=== PATIENT | male | born 1965 | race Caucasian/White ===

== ENCOUNTER 2017-12-02 09:49 | Emergency (ER) | payer OTHER ==
[2017-12-02 09:56] VITALS: RESP 16; O2SAT 94
--- NOTE | 2017-12-02 10:02 | EDPHY ---
H & P Stated Complaint: Persistant headache for 2 days. Time Seen by Provider: 12/02/17 10:02 HPI/ROS: CHIEF COMPLAINT: Atraumatic headache HISTORY OF PRESENT ILLNESS: The patient presents to the ED with a 2 day history of an atraumatic headache. 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 He reportedly was treated without surgery. The patient denies any history of fall or trauma. He denies fever, cough or congestion. The patient denies neck stiffness. The patient denies any additional acute complaints. He is without focal neurologic symptoms. The patient does have a history of HIV and has been compliant with his antiviral medications. REVIEW OF SYSTEMS: A comprehensive 10 point review of systems is otherwise negative aside from elements mentioned in the history of present illness. Source: Patient - Personal History Current Tetanus Diphtheria and Acellular Pertussis (TDAP): Yes - Medical/Surgical History Hx Asthma: No Hx Chronic Respiratory Disease: No Hx Diabetes: No Hx Cardiac Disease: No Hx Renal Disease: No Hx Cirrhosis: No Hx Alcoholism: No Hx HIV/AIDS: Yes Hx Splenectomy or Spleen Trauma: No Other PMH: Brain Hemmorage, Hyperlipidemia, HIV+ - Social History Smoking Status: Never smoked - Physical Exam Exam: General Appearance: Alert, no distress Eyes: Pupils equal and round no pallor or injection ENT, Mouth: Mucous membranes moist Respiratory: There are no retractions, lungs are clear to auscultation Cardiovascular: Regular rate and rhythm Gastrointestinal: Abdomen is soft and nontender, no masses, bowel sounds normal Neurological: A&O, normal motor function, normal sensory exam, normal cranial nerves Skin: Warm and dry, no rashes Musculoskeletal: Neck is supple nontender, no meningeal symptoms Extremities: symmetrical, full range of motion Constitutional: Initial Vital Signs Temperature (C) 36.6 C 12/02/17 09:54 Heart Rate 66 12/02/17 09:54 Respiratory Rate 16 12/02/17 09:54 Blood Pressure 140/86 H 12/02/17 09:54 O2 Sat (%) 94 12/02/17 09:54 O2 Delivery Mode Room Air Allergies/Adverse Reactions: No Known Allergies Allergy (Unverified 10/12/16 07:02) Home Medications: Medication Instructions Recorded Efavirenz/Emtricitab/Tenofovir 1 each PO DAILY 12/04/15 [Atripla Tablet] Rosuvastatin Calcium [Crestor 10mg 10 mg PO DAILY 09/20/15 (RX)] Sustiva 10/12/16 Medical Decision Making - Diagnostics Imaging Results: Imaging Impressions Head CT 12/02/17 10:13 Impression: Negative. No acute intracranial hemorrhage or swelling. Findings discussed with Emergency Department physician, Erasmo Lugo on 12/02, 11:57. Head CTA 12/02/17 10:13 Impression: 1. Normal intracranial arterial circulation. No intracranial aneurysm or vascular malformation. 2. Patent venous system. Findings discussed with Emergency Department physician, Dr. Erasmo Lugo on December 02, 2017 at 1157 hours. Neck CTA 12/02/17 10:13 Impression: 1. Widely patent carotid and vertebral arteries. No plaque, stenosis, dissection , or occlusion. 2. [id number]-[id number] degenerative disk disease extending from C4-C5 to C6-C7. Measurement of carotid stenosis is based on the residual internal carotid diameter with [place] Symptomatic Carotid Endarterectomy Trial (NASCET) based stenosis levels. Findings discussed with Emergency Department physician, Erasmo Lugo on 12/02, 11:57. ED Course/Re-evaluation: The patient presents the ED with a 2 day history of a atraumatic headache predominantly over his vertex. The patient reports he has a history of subarachnoid hemorrhage however did not have any treatment of an aneurysm. The patient is not anticoagulated. The patient denies any fever, cough or congestion. The patient denies any focal numbness or weakness. The patient's physical exam demonstrates no evidence of meningitis. Given the patient's history of subarachnoid hemorrhage he did undergo a noncontrast head CT scan and CT angiography all of which demonstrated no evidence of an acute finding. The patient did received 30 mg of IV Toradol in the emergency department. I re-evaluated the patient at 12:40 p.m. and he is currently feeling better. At this point time I do not feel that further workup is indicated. The patient will be advised to take Advil as needed for pain. He should return to the ED for any worsening headache, vomiting or other concerns. Differential Diagnosis: Differential diagnosis considered includes tension headache, migraine syndrome, SODA DISPENSER aneurysm, subarachnoid hemorrhage - Data Points Laboratory Results: Laboratory Results 12/02/17 10:22 12/02/17 10:22 12/02/17 12/02/17 10:22 10:22 WBC 6.66 10^3/uL 10^3/uL (3.80-9.50) RBC 5.03 10^6/uL 10^6/uL (4.40-6.38) Hgb 16.2 g/dL g/dL (13.7-17.5) Hct 46.5 % % (40.0-51.0) MCV 92.4 fL fL (81.5-99.8) MCH 32.2 pg pg (27.9-34.1) MCHC 34.8 g/dL g/dL (32.4-36.7) RDW 13.0 % % (11.5-15.2) Plt Count 211 10^3/uL 10^3/uL (150-400) MPV 9.1 fL fL (8.7-11.7) Neut % (Auto) 37.5 % L % (39.3-74.2) Lymph % (Auto) 50.3 % H % (15.0-45.0) Owen % (Auto) 7.8 % % (4.5-13.0) Eos % (Auto) 3.9 % % (0.6-7.6) Baso % (Auto) 0.3 % % (0.3-1.7) Nucleat RBC Rel Count 0.0 % % (0.0-0.2) Absolute Neuts (auto) 2.50 10^3/uL 10^3/uL (1.70-6.50) Absolute Lymphs (auto) 3.35 10^3/uL H 10^3/uL (1.00-3.00) Absolute Monos (auto) 0.52 10^3/uL 10^3/uL (0.30-0.80) Absolute Eos (auto) 0.26 10^3/uL 10^3/uL (0.03-0.40) Absolute Basos (auto) 0.02 10^3/uL 10^3/uL (0.02-0.10) Absolute Nucleated RBC 0.00 10^3/uL 10^3/uL (0-0.01) Immature Gran % 0.2 % % (0.0-1.1) Immature Gran # 0.01 10^3/uL 10^3/uL (0.00-0.10) Sodium 140 mEq/L mEq/L (135-145) Potassium 4.5 mEq/L mEq/L (3.5-5.2) Chloride 105 mEq/L mEq/L (97-110) Carbon Dioxide 21 mEq/l L mEq/l (22-31) Anion Gap 14 mEq/L mEq/L (8-16) BUN 16 mg/dL mg/dL (7-23) Creatinine 0.9 mg/dL mg/dL (0.7-1.3) Estimated GFR > 60 Glucose 97 mg/dL mg/dL (70-100) Calcium 9.2 mg/dL mg/dL (8.5-10.4) Medications Given: Discontinued Medications Ketorolac Tromethamine (Toradol) 30 mg IVP EDNOW ONE Stop: 12/02/17 12:17 Last Admin: 12/02/17 12:18 Dose: 30 mg Departure - Departure Disposition: Home, Routine, Self-Care Clinical Impression: Acute headache Condition: Good Instructions: Acute Headache (ED) Additional Instructions: 1. Take Ibuprofen or Motrin 600 mg by mouth three times a day. 2. Return to the ED for markedly worsening headache, fever, neck stiffness, vomiting or other concerns. 3. Please schedule a follow-up appointment with your primary care provider as needed. 4. Your CT and CT angiogram demonstrate no evidence of an acute abnormality. Referrals: Grace Kahn MD [Primary Care Provider] - As per Instructions
[2017-12-02 10:33] LABS: PLATELET COUNT 211 10^3/uL (150-400)
[2017-12-02] MEDS ORDERED: IOPAMIDOL (ISOVUE 370) 100 ML BTL IV ONE (10:59)
[2017-12-02 12:08] VITALS: BP 128/93; PULSE 61; TEMP 97.5
[2017-12-02] MEDS ORDERED: KETOROLAC 30 MG/1 ML SDV IVP ONE (12:16)
== END 2017-12-02 12:44 | disposition home or self-care (01) ==
DX: R51 Headache (principal); B20 Human immunodeficiency virus [HIV] disease
CPT/HCPCS: 96374; J1885; Q9967

== ENCOUNTER 2018-12-31 10:09 | Inpatient (IN) | payer OTHER ==
--- NOTE | 2018-12-31 10:33 | EDPHY ---
H & P Time Seen by Provider: 12/31/18 10:32 HPI/ROS: Chief complaint. Chest pain HPI. Patient is a 53-year-old male presents with chest pain. Symptoms began about 1 hr ago. He got this morning and went to the gym and had a hard workout which is his normal Wednesday routine. He got home and developed tightness and squeezing centrally. No radiation. No shortness of breath. However walking from the parking lot to the emergency department he had increased pain and shortness of breath with exertion. No previous symptoms. No cough or fever. No unusual leg pain or swelling. No abdominal pain. Patient had been taking cholesterol medication until 3 or 4 months ago but felt he was having side effects so stopped ROS 10 systems were reviewed and negative with the exception of the elements mentioned in the history of present illness Past Medical/Surgical History: HIV positive, remote history brain hemorrhage, dyslipidemia No family history of early coronary artery disease Social History: Single, nonsmoker, no alcohol Smoking Status: Never smoked Physical Exam: General Appearance: Alert well-developed male moderate distress vital signs are stable Eyes: Pupils equal and round no pallor or injection. ENT, Mouth: Mucous membranes are moist. Respiratory: There are no retractions, lungs are clear to auscultation. Cardiovascular: Regular rate and rhythm. Gastrointestinal: Abdomen is soft and nontender, no masses, bowel sounds normal. Neurological: Awake and alert, sensory and motor exams grossly normal. Skin: Warm and dry, no rashes. Musculoskeletal: Neck is supple nontender. Extremities symmetrical, full range of motion. Psychiatric: Patient is oriented X 3, there is no agitation. Constitutional: Initial Vital Signs Temperature (C) 36.5 C 12/31/18 10:15 Heart Rate 76 12/31/18 10:15 Respiratory Rate 16 12/31/18 10:15 Blood Pressure 141/93 H 12/31/18 10:15 O2 Sat (%) 97 12/31/18 10:15 O2 Delivery Mode Room Air Allergies/Adverse Reactions: No Known Allergies Allergy (Unverified 10/12/16 07:02) Home Medications: Medication Instructions Recorded Sustiva 10/12/16 Descovy 200-25 mg Tablet 12/31/18 Medical Decision Making - Diagnostics EKG Interpretation: EKG interpreted by me shows normal sinus rhythm normal interval and axis. QRS is normal there is no significant ST elevation or depression. No arrhythmia. The rate is 67 Repeat EKG shows normal sinus rhythm normal interval. Left axis deviation. Inverted T-waves lead 3 which are new compared to initial EKG Imaging Results: Imaging Impressions Chest X-Ray 12/31/18 10:34 Impression: Clear lungs. Negative portable chest. One-view chest x-ray interpreted by me is normal Procedures: IV normal saline, monitor Aspirin in the ED ED Course/Re-evaluation: Patient's initial troponin is 0.09. He has ongoing chest pain. I consulted discussed the case with Dr. Ferraro for cardiology who will see the patient in the emergency department Repeat troponin 0.07 Patient will go to the catheterization laboratory technician for continuing chest discomfort Differential Diagnosis: I considered acute coronary syndrome. Initial troponin was elevated. There were no acute EKG changes. I considered pneumonia, pneumothorax as well - Data Points Laboratory Results: Laboratory Results 12/31/18 10:26 12/31/18 10:26 12/31/18 12/31/18 12/31/18 11:15 10:30 10:26 WBC RBC Hgb Hct MCV MCH MCHC RDW Plt Count MPV Neut % (Auto) Lymph % (Auto) [place] % (Auto) Eos % (Auto) Baso % (Auto) Nucleat RBC Rel Count Absolute Neuts (auto) Absolute Lymphs (auto) Absolute Monos (auto) Absolute Eos (auto) Absolute Basos (auto) Absolute Nucleated RBC Immature Gran % Immature Gran # D-Dimer 0.47 ug/mLFEU ug/mLFEU (0.00-0.50) Sodium Potassium Chloride Carbon Dioxide Anion Gap BUN Creatinine Estimated GFR Glucose Calcium POC Troponin I 0.07 ng/mL ng/mL 0.09 ng/mL H ng/mL (0.00-0.08) (0.00-0.08) 12/31/18 12/31/18 10:26 10:26 WBC 6.01 10^3/uL 10^3/uL (3.80-9.50) RBC 4.80 10^6/uL 10^6/uL (4.40-6.38) Hgb 15.6 g/dL g/dL (13.7-17.5) Hct 46.5 % % (40.0-51.0) MCV 96.9 fL fL (81.5-99.8) MCH 32.5 pg pg (27.9-34.1) MCHC 33.5 g/dL g/dL (32.4-36.7) RDW 13.2 % % (11.5-15.2) Plt Count 201 10^3/uL 10^3/uL (150-400) MPV 9.5 fL fL (8.7-11.7) Neut % (Auto) 48.1 % % (39.3-74.2) Lymph % (Auto) 36.6 % % (15.0-45.0) [place] % (Auto) 10.8 % % (4.5-13.0) Eos % (Auto) 3.7 % % (0.6-7.6) Baso % (Auto) 0.5 % % (0.3-1.7) Nucleat RBC Rel Count 0.0 % % (0.0-0.2) Absolute Neuts (auto) 2.89 10^3/uL 10^3/uL (1.70-6.50) Absolute Lymphs (auto) 2.20 10^3/uL 10^3/uL (1.00-3.00) Absolute Monos (auto) 0.65 10^3/uL 10^3/uL (0.30-0.80) Absolute Eos (auto) 0.22 10^3/uL 10^3/uL (0.03-0.40) Absolute Basos (auto) 0.03 10^3/uL 10^3/uL (0.02-0.10) Absolute Nucleated RBC 0.00 10^3/uL 10^3/uL (0-0.01) Immature Gran % 0.3 % % (0.0-1.1) Immature Gran # 0.02 10^3/uL 10^3/uL (0.00-0.10) D-Dimer Sodium 139 mEq/L mEq/L (135-145) Potassium 4.0 mEq/L mEq/L (3.5-5.2) Chloride 108 mEq/L mEq/L (97-110) Carbon Dioxide 22 mEq/l mEq/l (22-31) Anion Gap 9 mEq/L mEq/L (6-14) BUN 16 mg/dL mg/dL (7-23) Creatinine 1.0 mg/dL mg/dL (0.7-1.3) Estimated GFR > 60 Glucose 121 mg/dL H mg/dL (70-100) Calcium 9.1 mg/dL mg/dL (8.5-10.4) POC Troponin I Medications Given: Discontinued Medications Aspirin (Aspirin) 324 mg PO EDNOW ONE Stop: 12/31/18 10:44 Last Admin: 12/31/18 10:44 Dose: 324 mg Nitroglycerin (Nitrostat) 0.4 mg SL EDNOW ONE Stop: 12/31/18 11:26 Last Admin: 12/31/18 11:27 Dose: 0.4 mg Point of Care Test Results: Chemistry 12/31/18 12/31/18 11:15 10:30 POC Troponin I 0.07 ng/mL ng/mL 0.09 ng/mL H ng/mL (0.00-0.08) (0.00-0.08) Departure - Departure Disposition: To OP Cath/Surgery Clinical Impression: Acute coronary syndrome Condition: Fair
[2018-12-31 10:40] LABS: PLATELET COUNT 201 10^3/uL (150-400)
[2018-12-31] MEDS ORDERED: ASPIRIN 81 MG CHEWABLE TAB ONE (10:42)
[2018-12-31] MEDS ORDERED: ASPIRIN 81 MG CHEWABLE TAB PO ONE (10:43)
[2018-12-31] MEDS ORDERED: NITROGLYCERIN 0.4 MG BTL SL ONE (11:25)
--- NOTE | 2018-12-31 11:33 | CPEKG ---
Test Reason : OPEN Blood Pressure : / mmHG Vent. Rate : 083 BPM Atrial Rate : 084 BPM P-R Int : 198 ms QRS Dur : 088 ms QT Int : 374 ms P-R-T Axes : 023 002 004 degrees QTc Int : 440 ms Sinus rhythm Confirmed by Mehul Storey ([id number]) on 12/31/2018 11:33:24 AM Referred By: MEHUL STOREY Confirmed By:Mehul Storey
--- NOTE | 2018-12-31 11:34 | CPEKG ---
Test Reason : OPEN Blood Pressure : / mmHG Vent. Rate : 067 BPM Atrial Rate : 066 BPM P-R Int : 189 ms QRS Dur : 088 ms QT Int : 382 ms P-R-T Axes : 018 021 037 degrees QTc Int : 404 ms Sinus rhythm Confirmed by Chaitanya Storey ([id number]) on 12/31/2018 11:33:32 AM Referred By: PHYSICIAN ED Confirmed By:Chaitanya Storey
[2018-12-31] MEDS ORDERED: LIDOCAINE 1% 300 MG/30 ML SDV ONE (11:54)
[2018-12-31] MEDS ORDERED: fentaNYL 100 MCG/2 ML INJ ONE ×3 (11:54→13:14)
[2018-12-31] MEDS ORDERED: MIDAZOLAM 2 MG/2 ML VIAL ONE ×3 (11:54→13:14)
[2018-12-31] MEDS ORDERED: VERAPAMIL 5 MG/2 ML VIAL ONE (11:55)
[2018-12-31] MEDS ORDERED: IOPAMIDOL (ISOVUE-370) 150 ML BTL IV ONE (11:55)
[2018-12-31] MEDS ORDERED: HEPARIN 10,000 UNIT/10 ML MDV (1,000 UNIT/ML) ONE (11:55)
--- NOTE | 2018-12-31 12:33 | GCON ---
[f rep st] CONSULTATION CARDIOLOGY CONSULT REFERRING PHYSICIAN: Chaitanya Storey MD REASON FOR CONSULTATION: Acute chest pain. HISTORY OF PRESENT ILLNESS: I have been asked to urgently visit with this patient in the emergency department by Dr. Chaitanya Storey. He is a very pleasant 53-year-old male with a longstanding history of HIV, on retroviral therapy, and hyperlipidemia, who presented with chest discomfort this morning after his regular exercise regimen. He did not have any chest discomfort while exercising. The chest discomfort started 1 hour after exercise. . It is described as heaviness in the retrosternal area without radiation. No relation with posture or respiration. He received an aspirin in the emergency department. On arrival, his chest discomfort was rated as an 8 on a scale of 1 to 10. Currently, he rates it as a 4. He received a sublingual nitroglycerin while I was present in the room. This did not alter his chest pain. He reports that he has had hyperlipidemia with a total cholesterol in the 300s, was placed on atorvastatin by his ID physician, Dr. Grace Kahn, but decided not to take it after he developed some joint pains. He is willing to resume the medication at this time. PAST MEDICAL HISTORY: 1. HIV. 2. Hyperlipidemia. 3. History of stroke - h/o IC bleed per patient but CTA head and CT head negative for aneurysm/bleed in 2018 FAMILY HISTORY: Not relevant to this exam. 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 Drinks moderately. Denies smoking or illicit drug use. REVIEW OF SYSTEMS: Negative except for mentioned in the HPI. PHYSICAL EXAMINATION: VITAL SIGNS: Blood pressure 122/86, heart rate 68, oxygen saturation is 95% on room air. LUNGS: Clear to auscultation. CVS: S1 and S2. Regular rate and rhythm. No murmurs, gallops, or rubs. ABDOMEN: No tenderness, guarding, or rigidity. HEENT: PERRLA. EOMI. NECK: No JVP. No carotid bruit. EXTREMITIES: No clubbing, cyanosis, or edema. NEUROLOGIC: Alert and oriented x3. No gross motor or sensory deficits. EKGs were reviewed. EKG on arrival at 10:11 showed a normal sinus rhythm without any acute ST or T-wave changes. [place] is leftward. EKG done at 11:03 showed a normal sinus rhythm. There are no acute ST or T-wave changes, but the S-wave in lead III is deeper than the prior EKG. Labs are reviewed. CBC is within normal limits. D-dimer is 0.47. Chem-7 is normal. [id number] troponin was 0.09 on arrival. Upper limit of normal is 0.08. It was repeated, and it was 0.07. Echocardiogram was done. I reviewed it while it was being done. This shows normal LV function with subtle apical hypokinesis. ASSESSMENT AND PLAN: This is a 53-year-old male with a history of human immunodeficiency virus, on retroviral therapy, and hyperlipidemia, which is untreated, who was presenting with an acute episode of chest discomfort after exercise. There are subtle wall motion abnormalities on an echocardiogram. The left ventricular ejection fraction is normal overall. There were no significant valvular lesions. Wcqmv-cz-[id number] troponin was borderline elevated. I discussed several options with the patient. These included managing him medically, checking serial troponins and making a decision regarding further testing tomorrow versus proceeding with a coronary angiography. The patient prefers to move forward with a coronary angiography because of continuing chest discomfort, which he currently rates as a 4 on a scale of 1 to 10. The risks of the coronary angiography including , ID, CVA, cardiac tamponade, renal failure, anaphylaxis, vascular access complications, et cetera , were reviewed with the patient. The patient signed informed consent. I have discussed this case with my partner , Dr. Tayo Gibson, who is going to perform the patient's coronary angiography. /[id number]/MODL MTDD
[2018-12-31] MEDS ORDERED: NITROGLYCERIN 1,500 MCG/15 ML VIAL MISC ONE (13:04)
[2018-12-31] MEDS ORDERED: niCARdipine 25 MG/10 ML VIAL IV ONE (13:07)
[2018-12-31] MEDS ORDERED: EPTIFIBATIDE 200 MG/100 ML BOTTLE IV ONE (13:09)
[2018-12-31] MEDS ORDERED: ETOMIDATE 40 MG/20 ML INJ ONE (13:15)
[2018-12-31] MEDS ORDERED: KETOROLAC 30 MG/1 ML SDV ONE (13:22)
[2018-12-31] MEDS ORDERED: NITROGLYCERIN/D5W 50 MG/250 ML BOTTLE IV ONE (13:33)
[2018-12-31] MEDS ORDERED: MEPERIDINE 25 MG/ML SYR ONE (13:33)
[2018-12-31] MEDS ORDERED: DEXMEDETOMIDINE HCL 400 MCG in NS 100 ML IV SCH (14:00)
--- NOTE | 2018-12-31 14:01 | ECHO ---
[email or web address] [address] [address] Main: [phone] Echocardiography Examination Transthoracic Name: DONALDO GARCIA MR#: [id number] Study Date: 12/31/2018 Study Time: 11:35 AM Date of : 1965 Age: 53 year(s) Height: 172.7 cm (68 in.) Weight: 97.52 kg (215 lb.) BSA: 2.11 m2 Gender: Male Examination: Echo Contrast: Image Quality: Adequate Rhythm: Normal sinus rhythm Heart Rate: 84 bpm BP: 130 mmHg/79 mmHg Indication: Chest Pain Procedure Staff Referring Physician: Ui Developer With Angular Js: Reading Physician: Uche Ferraro MD Requesting Provider: Ordering Physician: Uche Ferraro MD Indication: Chest Pain Measurements Chambers AV/MV Label Value Normal Value Label Value Normal Value EF lower range (%) 55 % AV PGmax 5 mmHg EF upper range (%) 60 % AV PGmean 3 mmHg IVSd, 2D 1 cm (0.6cm - 1.1cm) AV Vmax 1.07 m/s LVDd, 2D 4.6 cm (4.2cm - 5.9cm) CINTHYA (continuity eq. 2 cm2 LVDs, 2D 3.4 cm (2.1cm - 4cm) Vmax) LVEF visual 60 % CINTHYA D (continuity eq. 2.3 cm2 LVEF, 2D 51 % (54% - 74%) VTI) LVOT PGmax 2 mmHg MV A Vmax 0.76 m/s LVOT PGmean 1 mmHg MV E' lateral 0.06 m/s LVOT Vmax 0.69 m/s (0.7m/s - 1.1m/s) MV E' mean 0.06 m/s LVOT Vmean 0.44 m/s MV E' septal 0.05 m/s LVOTd 2 cm (1.9cm - 2.1cm) MV E Vmax 0.45 m/s LVPWd, 2D 1 cm (0.6cm - 1cm) MV E/A 0.59 RVDd, 2D 1.9 cm (1.9cm - 3.8cm) MV E/E' lateral 7.8 LA Volume, A4C 39 ml (16ml - 34ml) MV E/E' mean 8.18 LAESV index, MOD4 18.5 ml/m2 MV E/E' septal 8.5 (0.5 - 1.7) Additional Vessels TV/PV Label Value Normal Value Label Value Normal Value AoRoot, MM 3.5 cm (2.2cm - 3.7cm) NJ End hernandez Quinn 1.43 cm/s Patient: DONALDO GARCIA Study Date: 12/31/2018 Page 1 of 3 11:35 AM PV PGmax 3 mmHg PV Vmax, Caliper 0.8 m/s (0.6m/s - 0.9m/s) Conclusions Left Ventricle: Low normal left ventricular systolic function. There is apical anterior and apical hypokinesis. Right Ventricle: Right ventricular systolic function is normal. Mitral Valve: Trivial mitral regurgitation. Pericardium: This is an emergent echocardiogram performed in the ER pre cath.. Findings Left Ventricle: Left ventricle is normal in size. Low normal left ventricular systolic function. The EF is visually estimated to be 60 %. EF range is estimated at 55 % - 60 %. Left ventricle wall thickness is normal. Left ventricular diastolic function parameters are normal. No LV hypertrophy. There is apical anterior and apical hypokinesis. Right Ventricle: Normal size right ventricle. Right ventricular systolic function is normal. Left Atrium Measurements LAESV index, MOD4 is 18.5 ml/m2. Right Atrium: The right atrium is normal in size. Mitral Valve: Mitral valve appears structurally normal. Trivial mitral regurgitation. No mitral valve stenosis. Aortic Valve: Aortic leaflets are structurally normal. No aortic valve regurgitation. The aortic valve is trileaflet. Tricuspid Valve: Tricuspid valve leaflets are structurally normal. Trivial tricuspid regurgitation. Pulmonic Valve: Pulmonic leaflets are normal in appearance and function. Trivial pulmonic valve regurgitation is present. Aorta: The aorta is normal. The aortic root size in M-mode measures 3.5 cm. Aorta Measurements AoRoot, MM is 3.5 cm. Pericardium: This is an emergent echocardiogram performed in the ER pre cath.. Exam Details Procedure Ordered: Echo Procedure Status: Routine study Image Quality: Adequate Facility Location: Cardiac Echo 1 (No Signature Object) Patient: DONALDO GARCIA Study Date: 12/31/2018 Page 2 of 3 11:35 AM Patient: DONALDO GARCIA Study Date: 12/31/2018 Page 3 of 3 11:35 AM [id number]
[2018-12-31] MEDS ORDERED: LORazepam 2 MG/ML INJ IVP PRN (14:03)
[2018-12-31] MEDS ORDERED: TEMAZEPAM 15 MG CAP PO PRN (14:03)
[2018-12-31] MEDS ORDERED: ATROPINE SULFATE 1 MG/10 ML SYR IVP PRN (14:03)
[2018-12-31] MEDS ORDERED: CLOPIDOGREL BISULFATE 75 MG TAB PO ONE (14:03)
[2018-12-31] MEDS ORDERED: HYDROCODONE/APAP 5/325 TAB PO PRN (14:03)
[2018-12-31] MEDS ORDERED: NITROGLYCERIN 0.4 MG BTL SL PRN (14:03)
[2018-12-31] MEDS ORDERED: CLOPIDOGREL BISULFATE 75 MG TAB ONE (14:06)
[2018-12-31] MEDS ORDERED: EPTIFIBATIDE 100 ML IV SCH (14:30)
[2018-12-31] MEDS: NS 1,000 ML IV SCH (15:17)
--- NOTE | 2018-12-31 15:28 | CPIP ---
[f rep st] INVASIVE CARDIAC PROCEDURE DATE OF PROCEDURE: 12/31/2018 PROCEDURE PERFORMED: 1. Selective coronary angiography. 2. Left heart catheterization. 3. Left ventriculogram. 4. Percutaneous transluminal coronary angioplasty and stent placement of the proximal left anterior descending with the use of a 4.0 x 24 Synergy drug-eluting stent. INDICATIONS/APPROPRIATE USE CRITERIA: The patient has a positive troponin with an evolving EKG sugge stive of a possible high lateral or anterolateral injury pattern with an echocardiogram revealing dis tony apical hypokinesis, which is mild but certainly present. The patient has ongoing pain in spite o f sublingual nitroglycerin in the emergency department. I was asked to see the patient in emergency consultation for a cardiac catheterization by Dr. Uche Ferrrao. PROCEDURE IN DETAIL: After informed consent was obtained by the urgent nature of the situation, and n.p.o. status was confirmed, the region of the left wrist was cleaned, prepped, and draped in sterile fashion. Approximately 3 cc of 1% lidocaine was utilized for local anesthesia. A 6-Uruguayan sheath w as placed to the left radial artery with single anterior puncture of that vessel. The patient did un dergo an Amadou's test which demonstrated normal and dual arterial supply to the index fingers. The p atient underwent the previously mentioned diagnostic procedure with use of JL4 and R4 coronary cathet ers, as well as a 5-[place]ruguayan pigtail catheter. Standard over the wire exchange technique was utilized for all catheter exchanges. A Michel right catheter was also utilized. The right coronary artery is dominant, giving rise to posterior descending as well as the posterolateral and ventricular branch . With a standard JR4 catheter, there was evidence of a conus injection and dampening of the pressur e waveform. Therefore, we switched to a Michel right, which we were able to manipulate past the ta keoff of the conus branch to perform angiography. The vessel was large, approximately 4 mm in size. It gives rise to an important PDA and PLV branch. No flow-limiting obstruction of the blood vessels identified. There was excellent and MARIA-3 flow to the distal vessel. There was no evidence of rig ht to left collateral circulation. A JL4 diagnostic catheter was used to intubate the left main yoni nary. The left main coronary is approximately 8 mm in size and has an ostial obstruction near its ta keoff from the LAD, estimated at a maximum stenosis of approximately 20% at its takeoff from the left main. Left main trifurcates into an LAD, circumflex, and ramus system. The ramus vessel is small, approximately 1 mm in size and free of flow-limiting disease. The circumflex has a 20% ostial stenos is at the takeoff from the left main and gives rise to 2 important obtuse marginal branches, all of w hich are free of significant flow-limiting obstruction. The proximal LAD is approximately 3 to 5 mm in size and there is a 90% obstruction of the blood vessel with angiographic appearance with a fillin g defect consistent with a thrombus and ruptured plaque in the proximal LAD. There is MARIA-2 flow to the distal vessel in the LAD as well as MARIA-2 flow into a high diagonal vessel and MARIA-2 flow into a septal branch which both happened to come off in the LAD just distal to the visible clot within th e blood vessel. The patient then underwent the previously mentioned left heart catheterization with the use of a pigtail catheter. This demonstrated a sub EDP of 12 mmHg. The patient underwent left v entriculogram in the GREER projection, demonstrating relatively well-preserved ejection fraction at 50% to 55%. There was distal anterior wall and apical hypokinesis as were noted on the echocardiogram. No significant mitral regurgitation was noted on pressurized injection of the left ventricle. 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 There was no evidence of dissection or viviana aneurysm of the visualized portion of the thoracic aor ta. We turned our attention to the lesion in the proximal LAD. A 6-Uruguayan JL4 catheter was used for guide catheter support. A 0.014 Intuition wire was advanced across the lesion in question under dir ect fluoroscopic and angiographic guidance. Because of the visible thrombus within the LAD, we decid ed to try to trap the thrombus against the sidewall of the blood vessel with a primary stenting techn ique. This was accomplished with a 4.0 x 24 Synergy drug-eluting stent inflated to a maximum pressur e of 16 atmospheres with excellent angiographic results and 0% residual stenosis status post PTCA and stent placement. We were able to avoid compromising the ramus or origin of the circumflex vessel. Subsequent angiography did demonstrate a no reflow phenomenon. However, there was smooth and laminar flow within this stented segment of the LAD. This was treated with standard precautions including i ntracoronary nitroglycerin and nicardipine in combination with subsequent improvement in the flow to a MARIA-3 flow throughout the LAD. There was also evidence of good flow into the principal and 2nd di agonal vessel. Unfortunately, with stent implantation, both the small high lateral diagonal and the principal septal branch were completely occluded with evidence of MARIA-1 flow into the septal and DARBY I-0 flow into the small high diagonal vessel. These were treated with ongoing intracoronary nitrogly cerin. I did attempt to wire open that major septal. However, I was unable to get the wire past the stent strut and into the septal vessel and was using forces that I was concerned may have resulted i n a tear in the LAD proper. We, therefore, decided to abandon attempts to open the septal branches. The patient had an unusual severity of pain following this problem and we did perform angiography to ensure that there was not a stain in the aorta or proximal portion of the left main vessel. We ultim ately did ask for anesthesia to come and help us manage the patient's pain. He also had a very unusu ally high tolerance for benzodiazepines and fentanyl in the lab and I felt uncomfortable with pressin g those doses to help control his pain. 30 mg of Toradol to help treat any inflammatory component or pericardiac component to the discomfort was also utilized and ultimately the patient was placed on a Precedex drip. His EKG was performed revealing sinus bradycardia with no evidence of an injury or i schemic pattern on the EKG. There was a new first-degree AV block, likely related to the septal bran ch issue and the patient will need to be monitored for progression of AV block given the obstruction of the septal branch. The lateral ST-segment elevation in 1 and aVL as well as V4 and V5 were no sabrina giovana present on the postoperative EKG. The patient will require admission to the ICU for pain management and control as well as for an intra venous nitroglycerin drip to try to help improve the blood flow into these branches. We also gave th e patient a double bolus protocol of Integrilin to add a IIb/IIIa inhibitor to the mix to try to help treat any residual thrombus within that septal or diagonal branch. The patient will be admitted to the ICU in serious but stable condition, where serial troponins and EKGs will be obtained. Unfortuna tely, we will be unable to give beta blockers in high dose secondary to the appearance of first-degre e AV block and the known occlusion of his major septal branch which could affect his conduction syste m. Copy requested to: Primary Care Physician /[id number]/MODL
[2018-12-31] MEDS ORDERED: ENOXAPARIN 60 MG/0.6 ML SYR SC ONE (21:00)
[2018-12-31] MEDS: ONDANSETRON 4 MG/2 ML VIAL IVP PRN (22:25)
[2019-01-01] MEDS ORDERED: NS 300 ML IV ONE (01:00)
[2019-01-01] MEDS: NS 1,000 ML IV SCH (02:48)
[2019-01-01 06:19] LABS: PLATELET COUNT 158 10^3/uL (150-400)
[2019-01-01] MEDS: ASPIRIN 325 MG TAB PO SCH (08:53)
[2019-01-01] MEDS: CLOPIDOGREL BISULFATE 75 MG TAB PO SCH (08:53)
[2019-01-01] MEDS ORDERED: ASPIRIN 325 MG TAB PO SCH (09:00)
--- NOTE | 2019-01-01 11:16 | ASMTCMCOM ---
CM Note CM Note Notes: Reviewed chart. Pt presented to the Emergency Department with acute chest pain. History includes HIV, dyslipidemia, remote hx of brain hemorrhage. Pt admitted for acute coronary syndrome. He is s/p a heart cath. 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 Per ICU rounds, pt may discharge home independently later today, if he is medically stable. Pt to follow up as directed. No IM/COHEN forms to be signed, not applicable. CM available for any further issues or concerns. Discharge Plan: Likely home independent Date Signed: 01/01/2019 11:15 AM Electronically Signed By:Ana Contreras RN
[2019-01-01] MEDS: OXYCODONE/APAP 5/325 TAB PO PRN ×2 (16:53→20:54)
--- NOTE | 2019-01-01 18:00 | GPROG ---
[f rep st] PROGRESS NOTE TRANSFER OF CARE SUMMARY HISTORY OF PRESENT ILLNESS: Clifton is a 53-year-old very pleasant HIV-positive man, who went for a workout yesterday, which was relatively strenuous. He has been working out for the past several alona hs and has managed to lose approximately 30 pounds by an aggressive workout regimen. He had no sympt oms during the work out, but after the workout, experienced chest pressure and tightness that continu ed and climbed to a level of 4/10 in severity. It is located in his central chest and associated wit h mild nausea and shortness of breath. He came to the emergency department for an initial evaluation , and his EKG initially was normal; however, repeat electrocardiogram revealed minor, but important c hanges in leads I and aVL, suggestive of a high lateral or diagonal vessel injury. A STAT echocardio gram was performed in the emergency department, noting distal anterior wall and apical hypokinesis co nsistent with probable ischemia. The troponin I was also marginally elevated at 0.09 on initial eval uation, and then 0.07, which of course is near the upper limit of normal. Given the EKG and echocard iographic changes, it was deemed important to take the patient to the catheterization laboratory for a definitive evaluation of his coronary anatomy. HOSPITAL COURSE: The patient was admitted to the cardiac catheterization laboratory and underwent [facility] cardiac catheterization and angiography, documenting a severe if not critical stenosis of the proximal LAD with associated filling defects and staining consistent with a thrombus in the proximal LAD with associated MARIA 1 flow into a very tiny high diagonal branch, which came off the LAD in the region of the clotted segment. The second and principal diagonal were widely patent, and there was T IMI 2 flow to the distal LAD on initial presentation. We decided to perform primary stenting, as the rest of the vessel appeared to be relatively pristine, for concerns of embolizing the visible clot b urden more distally into the vessel. The vessel was primarily stented with a 4.0 x 24 Synergy drug-e luting stent, and almost immediately post-stent implantation, the patient complained of chest discomf ort. There was noted no reflow within the distal LAD, which was treated appropriately with intra-art erial nitroglycerin and nicardipine with subsequent resolution of this issue. There was also complet e occlusion of the very tiny high lateral diagonal branch that I mentioned previously, and there was also obstruction of a proximal septal vessel. There was MARIA 1 flow with just staining of the septal branch post-stent implantation. Unfortunately, patient's level of pain climbed significantly to a level of 8-10 in severity with asso ciated diaphoresis. Angiography was performed in multiple projections, which did not demonstrate tanisha dence of a plaque rupture or of an edge dissection of the LAD stent, which was my primary concern. T here was also no evidence of a dissection of the left main or aorta interface, and the left main was noted to be widely patent. There was excellent MARIA grade 3 flow throughout the LAD. Ultimately, th e patient had received high levels of benzodiazepines and fentanyl including 350 mcg of fentanyl with out significant pain relief. He also received etomidate, which he seemed to be somewhat resistant to , even a doses of 0.1 mcg/kg given separately. Anesthesia was consulted for help with pain relief, a nd given his response to those medications, we felt it would be most prudent to begin a Precedex drip . The Precedex drip was initiated, and we gave the patient intravenous nitroglycerin with subsequent resolution within 30-40 minutes or so of the chest pain syndrome. The patient did well until the rly evening hours last night, and then experienced some chest discomfort, which was treated with hydr ocodone. 30 minutes after the patient received hydrocodone, his pain became severe again last night with an 8/10 episode with hypotension and associated diaphoresis. The intravenous nitroglycerin was discontinued. The patient received morphine at that time. Unfortunately, a 12-lead EKG was not perf ormed during the episode of discomfort. 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 At the ti me of my evaluation this morning and this afternoon, his discomfort seems to be well controlled. His troponin margret to 2.4 and then 3.6 this morning, and will be checked again to ensure that we have see n the peak of his troponin elevation. In turn, a proBNP was elevated at 245 and was obtained as a pr ognostic marker. Because of the patient's pain, I do not think he is a current candidate for discharge. His EKG this morning shows sinus bradycardia with a new first-degree AV block that is likely related to septal bra nch occlusion and septal branch retirement. During the procedure, I did try to rewire this high diagonal a nd the septal branch and was unsuccessful given the clot burden that had been compressing those vesse ls and the fact that the stent seemed to cross over the ostium of the septal and unfortunately the hi gh lateral branch. So, those vessels have remained occluded in the case of the high lateral diagonal branch and subtotally occluded in regard to the septal obstruction. I do think it would be prudent to keep him overnight to watch for higher grade AV block. I have orde red an EKG in the morning. I would like to obtain an echocardiogram as well as a limited study to en sure that he does not have major or new wall motion abnormalities. Certainly, if there are new wall motion abnormalities in a large distribution of his cardiac muscle, then he may benefit from repeat c atheterization. My sense is that this is likely related to stretch of the vessel wall from a relativ chacho large stent associated with side-branch occlusion as I previously described. PHYSICAL EXAMINATION: Today, the patient's blood pressure is 114/79, the pulse is 63 and regular, re spirations 16, unlabored. NECK: No JVD. HEART: Normal S1 and S2, and he specifically does not hav e a new murmur suggestive of ventricular septal defect. LUNGS: Clear to auscultation bilaterally. ABDOMEN: Benign with positive bowel sounds. It is nondistended and nontender. The sheath was sewn in place and will be removed later today with a TR Band arteriotomy repair. LABORATORY STUDIES: As previously mentioned, with a BUN and creatinine of 13 and 0.7. Glucose of 11 6 this morning with a calcium level of 7.5. The other labs have already been discussed in the body o f this report. IMPRESSION AND PLAN: Subendocardial myocardial infarction related to plaque rupture and thrombus for mation within the proximal left anterior descending compromising flow to a small, if not tiny, high l ateral diagonal branch with subsequent MARIA 0 flow to that tiny branch post-stent implantation, and T IMI 1 flow into the first septal with associated electrical disturbance of first-degree atrioventricu lar block as the only noted complication post-stent implantation. The patient's troponin levels would currently suggest that there is minimal myocardial injury on the basis of his current lab studies. We will obtain an echocardiogram and trend his troponin as well as his EKG overnight, and he will be kept in the hospital for pain control and to watch for evidence of higher grade atrioventricular block given the compromise to the septal circulation. I am going off service in the morning, at 8 o'clock, and my partners will be available to take over t he patient's care. I am on-call overnight and will be available for any questions or concerns that a rise over the next 16 hours. The patient is currently in good, but guarded condition given the issue s that I have already noted. /[id number]/MODL
--- NOTE | 2019-01-01 18:48 | PDMN ---
Medical Necessity Medical necessity: MCG M230 [place] 53 yo M presents with chest pressure and tightness, stat echo revealed prob. 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 pt with subendocardial NJ relatd to plaque rupture and thrombus formation with the proximal LAD compromising flow status changed to INPT 01/01/ for ongoing care of pt with NJ/ cardiac cath with ongoing monitoring needed
[2019-01-01] MEDS: Emtricitabine/Tenofov Alafenam [Descovy 200-25 Mg Tablet] 1 TAB PO SCH (20:53)
[2019-01-01] MEDS: EFAVIRENZ 600 MG TAB PO SCH (20:54)
[2019-01-01] MEDS ORDERED: EFAVIRENZ 600 MG TAB PO SCH (21:00)
--- NOTE | 2019-01-01 23:24 | CPEKG ---
Test Reason : OPEN Blood Pressure : / mmHG Vent. Rate : 048 BPM Atrial Rate : 047 BPM P-R Int : 201 ms QRS Dur : 094 ms QT Int : 443 ms P-R-T Axes : 035 039 010 degrees QTc Int : 396 ms Sinus bradycardia Borderline first degree AV block Confirmed by Tayo Gibson ([id number]) on 01/01/2019 11:23:45 PM Referred By: Uche Ferraro Confirmed By:Tayo Gibson
[2019-01-02] MEDS: ONDANSETRON 4 MG/2 ML VIAL IVP PRN (04:24)
--- NOTE | 2019-01-02 08:47 | PDCARPN ---
Cardiology Progress Note Chief Complaint: CP Assessment/Plan: Assessment: NSTEMI/PCI to LAD with no reflow Plan: 01/02/19 08:45 doing well no CP overnight OOB transfer to floor if echo NL and no CP, d/c in AM Subjective: stable Reviewed/Discussed With: multidisciplinary team Time Spent with Patient: greater than 25 minutes Time Spent with Patient: Greater than 25 minutes spent on this patients care, greater than 50% of time spent counseling, educating, and coordinating care regarding the above mentioned plan. Objective: Vital Signs (8 Hrs) Pulse Resp BP Pulse Ox 01/02/19 07:00 68 17 113/72 92 01/02/19 06:00 70 14 123/77 H 93 01/02/19 05:00 60 13 93 01/02/19 04:00 64 15 121/81 H 95 01/02/19 03:00 72 15 120/82 H 97 01/02/19 02:00 70 10 L 123/82 H 95 01/02/19 01:00 66 18 144/80 H 95 Intake/Output (24 Hrs) 01/01/19 01/02/19 01/03/19 05:59 05:59 05:59 Intake Total 600 Output Total 1000 600 Balance -400 -600 Intake: Oral (ml) 600 IV Intake (ml) 0 Output: Urine (ml) 1000 600 Urinal 1000 600 Other: Number of Voids Toilet 1 Urinal 3 Number of Stools Toilet 1 Result Diagrams: 01/01/19 06:00 01/01/19 06:00 - Physical Exam Constitutional: healthy appearing Eyes: PERRL Ears, Nose, Mouth, Throat: moist mucous membranes Cardiovascular: regular rate and rhythm Peripheral Pulses: 1+: femoral (R), femoral (L) Respiratory: clear to auscultate bilat Gastrointestinal: normoactive bowel sounds Genitourinary: no suprapubic tenderness Skin: no rashes Musculoskeletal: no muscular tenderness Neurologic: AAOx3 Psychiatric: cooperative ICD10 Worksheet Patient Problems: Problems Problem Status Onset Acute coronary syndrome Acute Subendocardial NM first episode care Acute
[2019-01-02] MEDS: ROSUVASTATIN CALCIUM 20 MG TAB PO SCH (09:15)
[2019-01-02] MEDS: CLOPIDOGREL BISULFATE 75 MG TAB PO SCH (09:15)
[2019-01-02] MEDS: ASPIRIN 325 MG TAB PO SCH (09:15)
--- NOTE | 2019-01-02 12:13 | PCMIDPN ---
Assessment/Plan: 1. Non ST elevation NM status post PCI: Cardiology assistance greatly appreciated! Hopefully patient will go home tomorrow. Continue generic rosuvastatin. Patient will follow-up with cardiology as per instructions. 2. HIV: Stable on Descovy and Efavirenz. Please contact me if there are any additional questions with this patient prior to discharge. Otherwise, infectious Disease will not see. Thank you! Subjective: Visited patient in his room. Chart reviewed. Thankfully, he is now chest pain- free and anxious to go home, as he has a job interview that is fairly important tomorrow. He otherwise feels well. He is willing to continue a statin ( patient was started on rosuvastatin). Objective: Descovy/Efavirenz Vital Signs Temp Pulse Resp BP Pulse Ox 37.0 C 70 16 136/90 H 96 01/02/19 09:48 01/02/19 09:48 01/02/19 09:48 01/02/19 09:48 01/02/19 09:48 01/01/19 01/02/19 01/03/19 05:59 05:59 05:59 Intake Total 600 Output Total 1000 600 Balance -400 -600 - Physical Exam General Appearance: alert, no apparent distress Extremities: other (Left hand is somewhat puffy, resolving per patient (he had a significantly occlusive dressing in this area)) ICD10 Worksheet Patient Problems: Problems Problem Status Onset Acute coronary syndrome Acute Subendocardial NM first episode care Acute
--- NOTE | 2019-01-02 13:15 | ECHO ---
[email or web address] [id number] Main: [phone] Echocardiography Examination Transthoracic Name: DONALDO GARCIA MR#: [id number] Study Date: 01/02/2019 Study Time: 08:42 AM Date of : 1965 Age: 53 year(s) Height: 157.5 cm (62 in.) Weight: 68.04 kg (150 lb.) BSA: 1.69 m2 Gender: Male Examination: Limited Echo Contrast: Image Quality: Adequate Rhythm: Heart Rate: BP: 114 mmHg/83 mmHg Indication: S/P stent LTD eval LV function Procedure Staff Referring Physician: Nurses' Aide: Aruna Cooper [facility] Reading Physician: Javi Robison MD Requesting Provider: Ordering Physician: Tayo Gibson MD Indication: S/P stent LTD eval LV function Measurements Chambers Label Value Normal Value EF lower range (%) 55 % EF upper range (%) 54 % IVSd, 2D 1.1 cm (0.6cm - 1.1cm) LVDd, 2D 5.1 cm (4.2cm - 5.9cm) LVDs, 2D 3.8 cm (2.1cm - 4cm) LVEF, 2D 48 % (54% - 74%) LVEF, BP 55 % (55% - 70%) LVEF, MOD2 56 % (55% - 70%) LVEF, MOD4 54 % (55% - 70%) LVPWd, 2D 1 cm (0.6cm - 1cm) Conclusions Left Ventricle: CONCLUSIONS:1)Normal LV size and systolic function with a LVEF of 54%.2)Borderline concentric LVH noted.3)No aortic stenosis noted4)No pericardial effusion seen. Findings Patient: DONALDO GARCIA Study Date: 01/02/2019 Page 1 of 2 08:42 AM Left Ventricle: Left ventricle is normal in size. CONCLUSIONS: 1)Normal LV size and systolic function with a LVEF of 54%. 2)Borderline concentric LVH noted. 3)No aortic stenosis noted 4)No pericardial effusion seen. The ejection fraction, measured by Simpsons method, is 55 %. EF range is estimated at 55 % - 54 %. The LV wall thickness is at the upper limits of normal. Exam Details Procedure Ordered: Limited Echo Procedure Status: Routine study Image Quality: Adequate Facility Location: Cardiac Echo 1 (No Signature Object) Patient: DONALDO GARCIA Study Date: 01/02/2019 Page 2 of 2 08:42 AM [id number]
--- NOTE | 2019-01-02 13:59 | CPEKG ---
Test Reason : OPEN Blood Pressure : / mmHG Vent. Rate : 069 BPM Atrial Rate : 069 BPM P-R Int : 208 ms QRS Dur : 091 ms QT Int : 399 ms P-R-T Axes : 019 031 041 degrees QTc Int : 428 ms Sinus rhythm Borderline prolonged WI interval Similar to prior Confirmed by Isaak Iqbal ([id number]) on 01/02/2019 1:58:58 PM Referred By: Uche Ferraro Confirmed By:Isaak Iqbal
[2019-01-02] MEDS: EFAVIRENZ 600 MG TAB PO SCH (20:22)
[2019-01-02] MEDS: Emtricitabine/Tenofov Alafenam [Descovy 200-25 Mg Tablet] 1 TAB PO SCH (20:22)
[2019-01-03 04:26] LABS: PLATELET COUNT 166 10^3/uL (150-400)
--- NOTE | 2019-01-03 07:15 | PDCARPN ---
Cardiology Progress Note Chief Complaint: CP Assessment/Plan: Assessment: NSTEMI/PCI to LAD with no reflow Plan: 01/02/19 08:45 doing well no CP overnight OOB transfer to floor if echo NL and no CP, d/c in AM 01/03/19 07:14 doing well echo- nl ef no CP OOB d/c home today f/u next week Subjective: doing well Reviewed/Discussed With: multidisciplinary team Time Spent with Patient: greater than 25 minutes Time Spent with Patient: Greater than 25 minutes spent on this patients care, greater than 50% of time spent counseling, educating, and coordinating care regarding the above mentioned plan. Objective: Vital Signs (8 Hrs) Temp Pulse Resp BP Pulse Ox 01/03/19 04:00 36.9 C 62 16 111/75 93 01/02/19 23:30 36.9 C 67 20 108/80 93 Intake/Output (24 Hrs) 01/02/19 01/03/19 01/04/19 05:59 05:59 05:59 Intake Total 600 1455 Output Total 1000 845 Balance -400 610 Intake: Oral (ml) 600 1455 IV Intake (ml) 0 Output: Urine (ml) 1000 845 Urinal 1000 845 Other: Number of Voids Toilet 1 3 Urinal 3 Number of Stools Toilet 1 Result Diagrams: 01/03/19 03:35 01/03/19 03:35 - Physical Exam Constitutional: healthy appearing Eyes: PERRL Ears, Nose, Mouth, Throat: moist mucous membranes Cardiovascular: regular rate and rhythm Peripheral Pulses: 1+: femoral (R), femoral (L) Respiratory: clear to auscultate bilat Gastrointestinal: normoactive bowel sounds Genitourinary: no suprapubic tenderness Skin: no rashes Musculoskeletal: no muscular tenderness Neurologic: AAOx3 Psychiatric: cooperative ICD10 Worksheet Patient Problems: Problems Problem Status Onset Acute coronary syndrome Acute Subendocardial [place] first episode care Acute
--- NOTE | 2019-01-03 07:37 | GDS ---
[f rep st] DISCHARGE SUMMARY DISCHARGE DIAGNOSIS: Coronary artery disease. HOSPITAL COURSE: Briefly, this is a 53-year-old male with history of HIV positive, hyperlipidemia wh o presents to [facility] with complaints of chest pain. The patient was found to have high-grade proximal L AD stenosis. The patient underwent successful PCI by Dr. Gibson. During the procedure, the patient did have some reflow into a high diagonal artery and septal activities director; however, this resolved with m edical therapy. The patient has been chest pain free for over 24 hours and his last echocardiogram d one 24 hours ago shows normal ventricular function with no wall motion abnormality. Patient has been ambulating in the halls without problems. Patient will be discharged home this morning with his home medications including aspirin and Plavix. He will be followed up in the office in 1 week's time. The patient understands and agrees with plan . Will follow up with his scheduled appointment. /[id number]/MODL
[2019-01-03 07:47] VITALS: BP 116/81
[2019-01-03] MEDS: ROSUVASTATIN CALCIUM 20 MG TAB PO SCH (08:10)
[2019-01-03] MEDS: CLOPIDOGREL BISULFATE 75 MG TAB PO SCH (08:10)
[2019-01-03] MEDS ORDERED: ASPIRIN 81 MG CHEWABLE TAB PO SCH (09:00)
--- NOTE | 2019-01-06 15:28 | PQFORM ---
PHYSICIAN QUERY FORM Needs Your Response This query form is being sent to you to assure this patient record is coded properly. Please respond to the question below: VISITOR SERVICES REPRESENTATIVE QUESTION: Dear Dr. Mike, Non-ST elevation myocardial infarction was documented within Dr. Gibson's General Progress note. Patient presented to ER with chest pain, elevated troponin and an echo revealed probable ischemia. Noted in the Medical necessity note patient was admitted for "ongoing care for DE." Cardiology progress notes 01/02-01/03 and Infectious Disease progress note 01/02 documents patient diagnosis of NSTEMI. Patient was later treated with PCI by Dr. Gibson. Based on the clinical indicators and your professional judgement should the diagnosis of Non-ST elevation myocardial infarction be included in the Discharge Summary? ___X__Yes No Other more appropriate diagnosis (Please specify) Clinically unable to determine Thank you TEJINDER [facility] HIM/Coding Dept. INSTRUCTIONS FOR RESPONSE: Answer question by clicking on the "Edit Document" button. Move cursor to area below the stars. When complete, hit "Save." Click on the "Sign" button, then click "Sign" again. Type in your PIN and hit "Enter." MTDD
== END 2019-01-03 08:42 | disposition home or self-care (01) | DRG 247 ==
LOC: F2N 14:32 → OBSVTOIN 01-01 18:20 → F2W 01-02 10:10
PROVIDERS: ADMIT Internal Medicine Cardiovascular Disease; ATTEND Internal Medicine Cardiovascular Disease
PROC: 027034Z Dilation of Coronary Artery, One Artery with Drug-eluting Intraluminal Device, Percutaneous Approach (ICD-10-PCS; principal; 2018-12-31)
PROC: 4A023N7 Measurement of Cardiac Sampling and Pressure, Left Heart, Percutaneous Approach (ICD-10-PCS; principal; 2018-12-31)
DX: I21.4 Non-ST elevation (NSTEMI) myocardial infarction (principal); I25.10 Atherosclerotic heart disease of native coronary artery without angina pectoris; E78.5 Hyperlipidemia, unspecified; I44.30 Unspecified atrioventricular block; Z21 Asymptomatic human immunodeficiency virus [HIV] infection status
CPT/HCPCS: 84484-ER; C1769; C1874; C1887; C9600; G0378; J1327; J1644; J1650; J1885; J2060; J2175; J2250; J2270; J2405; J3010; Q9967